=== PATIENT | male | born 1940 | race Caucasian/White ===

== ENCOUNTER 2023-10-29 10:28 | Day surgery (SDC) | payer MEDICARE ==
[~2023-10-29] VITALS: Ht 177.8 cm; Wt 88.4 kg
[~2023-10-29 10:28] MED LIST: ATEN50TA2 PO; ATROPINE SULFATE 1% OPHTH SOLN 2ML BTL OS SCH; CALC500C16 PO; CRES40TA PO; DOXA8TAB65 PO; FLEX SEED OIL PO; LIDOCAINE 3.5 % 1ML OPHTH TOPICAL GEL OU ONE; OFLOXACIN 0.3 % (OCUFLOX) OPTH SOL 5ML OS ONE; OMEP10CASR PO; PHENYLEPHRINE 10% OPHTH SOL 5ML OS PRN; PHENYLEPHRINE 2.5% OPHTH SOL 2ML OS SCH; TROPICAMIDE 1% OPHTH SOLN 15ML OS SCH; [UNRECOGNIZED DRUG - CODE] PO; tumeric PO
[2023-10-29] MEDS: BSS IRRIG/VANCO(10MG)/TOBRA(5MG)/EPINEPH(1:1000-0.5CC)500ML BAG-ORONLY As Ordered ONE (11:55)
[2023-10-29] MEDS: CEFUROXIME 1MG/0.1ML INTRACAMERAL INJ As Ordered ONE (11:56)
[2023-10-29] MEDS: LIDOCAINE 1% SDV 5ML VIAL As Ordered ONE (11:56)
[2023-10-29 12:10] VITALS: BP 159/77; TEMP 97.8; O2SAT 99
== END 2023-10-29 12:30 | disposition home or self-care (01) ==
LOC: M SDC 10:28
PROVIDERS: ATTEND Ophthalmology
DX: H25.12 Age-related nuclear cataract, left eye (principal); G47.30 Sleep apnea, unspecified; I10 Essential (primary) hypertension; E78.00 Pure hypercholesterolemia, unspecified; K21.9 Gastro-esophageal reflux disease without esophagitis; M19.90 Unspecified osteoarthritis, unspecified site
CPT/HCPCS: 66984; J0697; V2632